=== PATIENT | female | born 1960 | race Caucasian/White ===

== ENCOUNTER 2025-02-19 17:49 | Inpatient (IN) | payer OTHER ==
[~2025-02-19] VITALS: Ht 162.6 cm; Wt 96.2 kg
[~2025-02-19 17:49] MED LIST: AMLODIPINE BES2.5 MG PO; ASPIRIN81 M1 PO; CEFUROXIME250 MG PO; FELODIPINE10 MG PO; LIPITOR40 MG PO; MEMANTINE HCL5 MG PO; METFORMIN HYDR500 MG PO; TRELEGY ELLIPT1 EACH INH; VENT7GM INH
[2025-02-19 17:50] VITALS: BP 131/74
[2025-02-19 18:52] LABS: BILIRUBIN Negative (Negative); BLOOD Trace-Lysed (Negative); CLARITY Cloudy (Clear); COLOR Yellow (Yellow); KETONE Trace (Negative); LEUKO ESTERASE 1+ (Negative); NITRITE Negative (Negative); PH 5.5 (4.5-8.0); SPECIFIC GRAVITY 1.020 (1.001-1.030); UROBILINOGEN 1.0 E.U./dl (0.0-1.0)
[2025-02-19 19:18] LABS: BACTERIA 2+; MUCOUS TRACE; RBC 0-2 rbc/hpf (0-2)
[2025-02-19 19:18] LABS: BASO # 0.1 10*3/uL (0.0-0.1); BASO % 0.5 % (0.0-1.0); EOS # 0.1 10*3/uL (0.0-0.4); EOS % 0.9 % (1.0-4.0); MEAN CELL VOLUME 86.7 fl (81.0-99.0); MEAN CORPUSCULAR HGB 27.9 pg (27.0-31.0); MEAN PLATELET VOLUME 10.5 fl (9.6-12.3); MONO # 0.7 10*3/uL (0.1-1.0); MONO % 7.7 % (3.0-9.0); NEUT # 5.9 10*3/uL (2.3-7.9); NEUT % 63.9 % (47.0-73.0); NUCLEATED RED BLOOD CELL 0.0 % (0.0-0.0); NUCLEATED RED BLOOD CELL 0.0 10*3/uL (0.0-0.0); PLATELET COUNT AUTOMATED 210 10*3/uL (130-400); RED CELL DISTRI WIDTH 13.8 % (0-14.5)
[2025-02-19 19:37] LABS: BUN 15.0 mg/dl (9-23)
[2025-02-19 20:05] VITALS: BP 126/68
[2025-02-19 23:11] VITALS: BP 129/72
[2025-02-20 00:21] VITALS: BP 122/72
[2025-02-20] MEDS ORDERED: DEXTROSE 10 % IN WATER 250 ML IV PRN (06:20)
[2025-02-20] MEDS ORDERED: DEXTROSE 50% 25 GM/50 ML VIAL IV PRN (06:20)
[2025-02-20] MEDS ORDERED: SODIUM CHLORIDE 0.9% 1,000 ML IV SCH (06:20)
[2025-02-20 06:51] LABS: BASO # 0.0 10*3/uL (0.0-0.1); BASO % 0.5 % (0.0-1.0); EOS # 0.1 10*3/uL (0.0-0.4); EOS % 0.9 % (1.0-4.0); MEAN CELL VOLUME 88.5 fl (81.0-99.0); MEAN CORPUSCULAR HGB 27.8 pg (27.0-31.0); MEAN PLATELET VOLUME 11.0 fl (9.6-12.3); MONO # 0.7 10*3/uL (0.1-1.0); MONO % 8.5 % (3.0-9.0); NEUT # 4.9 10*3/uL (2.3-7.9); NEUT % 61.7 % (47.0-73.0); NUCLEATED RED BLOOD CELL 0.0 % (0.0-0.0); NUCLEATED RED BLOOD CELL 0.0 10*3/uL (0.0-0.0); PLATELET COUNT AUTOMATED 216 10*3/uL (130-400); RED CELL DISTRI WIDTH 14.0 % (0-14.5)
[2025-02-20 07:26] LABS: BUN 13 mg/dl (9-23)
[2025-02-20] MEDS ORDERED: INSULIN REGULAR, HUMAN 1 UNIT/0.01 ML SC SCH ×2 (07:30)
[2025-02-20 08:00] VITALS: BP 130/65
[2025-02-20] MEDS ORDERED: CEFUROXIME AXE500 MG PO (08:35)
[2025-02-20] MEDS ORDERED: Memantine Hydrochloride 5 MG TAB PO SCH (10:00)
[2025-02-20] MEDS ORDERED: ASPIRIN ENTERIC COATED 81 MG TAB PO SCH (10:00)
[2025-02-20] MEDS ORDERED: ATORVASTATIN CALCIUM 40 MG TABLET PO SCH (10:00)
[2025-02-20 12:00] VITALS: BP 132/78
[2025-02-20] MEDS ORDERED: CEFUROXIME250 MG PO (13:06)
== END 2025-02-20 13:20 | DRG 689 ==
LOC: ED 17:49 → 4E 19:57 → EDHOLD 19:57 → 4E 23:30
PROVIDERS: Nurse Practitioner Family; ADMIT Internal Medicine; ATTEND Internal Medicine
DX: N39.0 Urinary tract infection, site not specified (principal); G93.41 Metabolic encephalopathy; N17.9 Acute kidney failure, unspecified; I10 Essential (primary) hypertension; J44.9 Chronic obstructive pulmonary disease, unspecified; E11.9 Type 2 diabetes mellitus without complications

== ENCOUNTER 2025-04-03 11:10 | Emergency (ER) | payer OTHER ==
[~2025-04-03 11:10] MED LIST changes: +CEFUROXIME AXE500 MG PO
[2025-04-03] MEDS ORDERED: Acetaminophen/Hydrocodone 5 MG/325 MG TABLET PO ONE (11:30)
[2025-04-03] MEDS ORDERED: IOHEXOL 300 MG/ML 100 ML VIAL IV ONE (11:40)
[2025-04-03] MEDS ORDERED: IOHEXOL 300 MG/ML 100 ML VIAL ONE (12:01)
== END 2025-04-03 12:44 ==
LOC: ED 11:10
DX: M54.50 Low back pain, unspecified (principal); K59.00 Constipation, unspecified; R30.9 Painful micturition, unspecified; Z87.820 Personal history of traumatic brain injury; Z79.899 Other long term (current) drug therapy; Z79.82 Long term (current) use of aspirin; Z79.84 Long term (current) use of oral hypoglycemic drugs

== ENCOUNTER 2025-04-06 13:14 | Emergency (ER) | payer OTHER ==
[~2025-04-06] VITALS: Wt 99.3 kg
== END 2025-04-06 14:59 | disposition home or self-care (01) ==
LOC: ED 13:14
DX: S00.83XA Contusion of other part of head, initial encounter (principal); M25.511 Pain in right shoulder; J44.9 Chronic obstructive pulmonary disease, unspecified; I10 Essential (primary) hypertension; E11.9 Type 2 diabetes mellitus without complications; W01.0XXA Fall on same level from slipping, tripping and stumbling without subsequent striking against object, initial encounter; Y93.89 Activity, other specified; Y92.89 Other specified places as the place of occurrence of the external cause; Y99.8 Other external cause status

== ENCOUNTER 2025-04-28 10:15 | Emergency (ER) | payer OTHER ==
[~2025-04-28] VITALS: Ht 165.1 cm; Wt 95.3 kg
== END 2025-04-28 12:01 | disposition home or self-care (01) ==
LOC: ED 10:15
DX: M79.662 Pain in left lower leg (principal); R22.42 Localized swelling, mass and lump, left lower limb; J44.9 Chronic obstructive pulmonary disease, unspecified; I10 Essential (primary) hypertension; E11.9 Type 2 diabetes mellitus without complications; E78.5 Hyperlipidemia, unspecified